=== PATIENT | male | born 1940 | race Caucasian/White ===

== ENCOUNTER 2019-01-21 11:34 | Day surgery (SDC) | payer MEDICARE, OTHER, SELFPAY ==
[2019-01-21 12:14] VITALS: BP 139/75; PULSE 63; RESP 15; TEMP 36.3; O2SAT 99; BMI 25.1
[2019-01-21] MEDS: SODIUM CHLORIDE 0.9% 1,000 ML 200 ML IV (12:27)
--- NOTE | 2019-01-21 12:41 | PM.HP.1 ---
History of Present Illness Date Patient Seen: 01/21/19 Time Patient Seen: 12:41 Chief complaint: [id number] Narrative: 78yo M for surveillance colonoscopy. Has had 3-4 scopes for screening, had polyps at last somewhat over 5 years ago. No symptoms, no family h/o CRC. Patient History Surgical History History of tonsillectomy Status post appendectomy Family History (Updated 04/09/15 @ 00:00 by Conversion Provider) Brother Age: 71 Prostate cancer Social History household members: spouse Family & Social History Family History Brother Age: 71 Prostate cancer Social History: household members spouse Meds Home Medications Medication Instructions Recorded Confirmed Type allopurinol 300 mg PO QDAY #90 tab 07/05/16 01/21/19 Rx doxazosin [Cardura] 8 mg PO QDAY #90 tab 10/30/16 01/21/19 Rx amlodipine [Norvasc] 5 mg PO QDAY #90 tab 06/10/17 01/21/19 Rx atorvastatin [Lipitor] 40 mg PO HS #90 tab 06/10/17 01/21/19 Rx lisinopril-hydrochlorothiazide 10 mg PO QDAY 01/21/19 01/21/19 History Allergies Allergy/AdvReac Type Severity Reaction Status Date / Time lisinopril [LISINOPRIL] AdvReac Intermediate ELEVATED Verified 01/21/19 12:28 POTASSIUM Review of Systems Constitutional Constitutional: Reports as per HPI Exam Vital Signs (past 8 hours): - 01/21/19 12:14 Temperature 97.4 F L Pulse Rate 63 Respiratory Rate 15 Blood Pressure 139/75 Pulse Oximetry 99 Oxygen Delivery Method Room Air Narrative Exam Narrative: AAO, NAD, male of healthy weight EOMI, MMM unlabored RA soft, nt/nd MAEW Assessment & Plan (1) Screening for colon cancer: Current visit: Yes Status: Acute Assessment & Plan narrative: - surveillance colonoscopy --> all R/B/A discussed and pt wishes to proceed
[2019-01-21] MEDS: fentaNYL 250 MCG/5 ML INJ IV (13:24)
[2019-01-21] MEDS: MIDAZOLAM 5 MG/5 ML VIAL IV (13:24)
[2019-01-21 13:59] VITALS: BP 109/68; PULSE 61; RESP 11; TEMP 36.9; O2SAT 98
[2019-01-21 14:04] VITALS: BP 109/69; PULSE 68; RESP 16; O2SAT 97
[2019-01-21 14:13] VITALS: BP 114/72; PULSE 60; RESP 16; TEMP 36.7; O2SAT 99
[2019-01-21 14:40] VITALS: BP 108/63; PULSE 65; RESP 16; TEMP 37; O2SAT 99
--- NOTE | 2019-01-21 14:48 | PM.OP.ENDO ---
Operative Date/Time/Diagnoses Date of procedure: 01/21/19 Time of procedure: 14:03 Pre-op diagnosis: history of polyps Post-op diagnosis: same Procedure & Clinicians Study performed: Surveillance Colonoscopy Same procedure as scheduled: Yes Indications: history of polyps Procedure Notes SCOAP/Timeout: yes Procedure in detail: After obtaining informed consent, the patient was brought to the GI suite and placed in the left lateral decubitus position on the examination table. After placement of appropriate monitors, the patient was given incremental doses of Versed and Fentanyl until an appropriate level of sedation was achieved. A time out was held per SCOAP protocol. A digital rectal examination was performed and did not reveal any masses or other. The colonoscope was gently passed into the patient's anus and the entire colon navigated to the level of the cecum with difficulty due to a long and tortuous colon. Prep was good. Once in the cecum, the scope was slowly withdrawn being sure to go before and beyond all mucosal folds and prominences as able to get a thorough examination. No masses or polyps are noted. Other findings include diverticulosis of the sigmoid colon. At the level of the rectal vault, the scope was retroflexed and the internal anal canal was examined. The scope was straightened and air aspirated from the colon. The instrument was removed from the patient's body and the procedure was concluded. The patient was allowed to awaken from sedation without difficulty and taken to the post-anesthesia care unit in good condition. Scope withdrawal time: 10 min Sedation minutes: 42 Findings: diverticulosis Specimen(s): none sent Complications: none Impression: 1. Diverticulosis of sigmoid colon, moderate 2. Tortuous colon Recommendations: Colonscopy in 5 years and High fiber diet Follow up: as needed Disposition: PACU
== END 2019-01-21 14:48 | disposition home or self-care (01) ==
PROVIDERS: PCP Family Medicine; Visit Provider Surgery
PROC: 0DJD8ZZ Inspection of Lower Intestinal Tract, Via Natural or Artificial Opening Endoscopic (ICD-10-PCS; CPT 45378; principal; 2019-01-21 13:00)
DX: Z86.010 Personal history of colon polyps (principal); K57.30 Diverticulosis of large intestine without perforation or abscess without bleeding
CPT/HCPCS: G0105; 99152; 99153; J2250; J3010

== ENCOUNTER 2021-01-30 08:45 | Day surgery (SDC) | payer MEDICARE, SELFPAY ==
[2021-01-30 10:31] VITALS: BP 138/67; PULSE 65; RESP 16; TEMP 36.8; O2SAT 99; BMI 24.9
[2021-01-30] MEDS: PROPARACAINE 0.5% OPHTH SOL 2 DROPS EYE-OP (10:42)
[2021-01-30] MEDS: CATARACT EYE COMPOUND (10 DROPS/SYRINGE) 3 DROPS EYE-OP (10:47)
--- NOTE | 2021-01-30 11:02 | P.OP_ITS ---
Operative Date/Time/Diagnoses Pre-op diagnosis: Nuclear cataract right eye Procedure & Clinicians Procedure: Cataract Surgery Same procedure as scheduled: Yes Surgeon: Conner Lin Anesthesia Type: MAC +/- and Sedation Operative Notes Procedure in detail: Patient brought to the operating suite. Tetracaine drops placed in the right eye. Marking instrument was used to rafael vertical and horizontal meridians. Patient was prepped and draped in sterile manner. Wire lid speculum was placed in the eye. Marking instrument was used to rafael 40 degree meridian. Betadine drops were placed on the eye. This was irrigated. Lidocaine jelly was placed on the eye. A paracentesis port was created with a side-port blade. 0.1 mL 1% preservative free lidocaine was injected into the anterior chamber. The anterior chamber was deepened with viscoelastic. 2.6 mm keratome was used to create a temporal clear corneal incision. Cystotome and Utrata forceps were used to create continuous tear capsulorrhexis. Balanced salt solution was used to hydro dissect the nucleus. The phacoemulsification handpiece was inserted and the nucleus was removed using the stop and chop technique. The irrigation aspiration handpiece was inserted and the remaining cortex was removed. Anterior chamber was deepened with viscoelastic. An Gonzalez [id number] intraocular lens with a power of 20.5 was injected into the capsular bag. Irrigation aspiration handpiece was inserted and the remaining viscoelastic was removed. The lens was rotated to the 40 degree meridian. Incision was hydrated with balanced salt solution and found to be leak free with pressure with Weck- Milly sponges. 0.1 mL Vigamox injected anterior chamber. 0.3 mL Kenalog 10 mg was injected subconjunctivally. Lid speculum was removed. The patient left the operating room in excellent condition. Complications: none Post-operative Condition: stable Disposition: same day surgery
--- NOTE | 2021-01-30 11:02 | PM.PREOP ---
Pre-operative Note Interval Note History & Physical reviewed/Exam performed by Physician: Yes Changes to H&P: No
[2021-01-30] MEDS: PHENYLEPHRINE/LIDOCAINE VIAL (OR) 0.2 ML EYE-OP (11:23)
[2021-01-30] MEDS: CHONDROIDTIN/SOD HYALURONATE 1.05 ML SYRINGE INTRAOCULA (11:23)
[2021-01-30] MEDS: TRIAMCINOLONE 50 MG/5 ML VIAL INJ (11:23)
[2021-01-30] MEDS: MOXIFLOXACIN INJ 4 MG/0.8 ML VIAL 0.5 MG EYE-OP (11:23)
[2021-01-30] MEDS: LIDOCAINE 2% (GLYDO) 6 ML GEL TOP (11:24)
[2021-01-30] MEDS: BALANCED SALT IRRIG SOLN NO.2 500 ML, EPINEPHrine 1 MG IRR (11:24)
[2021-01-30] MEDS: TETRACAINE 0.5% OPHTH DROPS 4 ML 2 DROPS EYE-OP (11:24)
[2021-01-30 11:35] VITALS: BP 97/61; PULSE 60; RESP 16; TEMP 36.2; O2SAT 100
[2021-01-30 11:58] VITALS: BP 114/67
== END 2021-01-30 11:59 | disposition home or self-care (01) ==
PROVIDERS: PCP Family Medicine; Referring Provider Family Medicine; Visit Provider Ophthalmology
PROC: (CPT 66984; principal; 2021-01-30 11:15)
DX: H25.11 Age-related nuclear cataract, right eye (principal); E78.00 Pure hypercholesterolemia, unspecified; I10 Essential (primary) hypertension
CPT/HCPCS: 66984; J0171; J2250; J3010; J3301; V2787

== ENCOUNTER 2021-02-13 10:07 | Day surgery (SDC) | payer MEDICARE, SELFPAY ==
[2021-02-13] MEDS: PROPARACAINE 0.5% OPHTH SOL 2 DROPS EYE-OP (11:32)
[2021-02-13] MEDS: CATARACT EYE COMPOUND (10 DROPS/SYRINGE) 3 DROPS EYE-OP (11:41)
[2021-02-13 11:44] VITALS: BP 118/69; PULSE 62; RESP 16; TEMP 36.4; O2SAT 99; BMI 24.8
--- NOTE | 2021-02-13 12:57 | P.OP_ITS ---
Operative Date/Time/Diagnoses Pre-op diagnosis: Nuclear Cataract Left eye Post-op diagnosis: same Procedure & Clinicians Same procedure as scheduled: Yes Surgeon: Conner Lin Anesthesia Type: MAC +/- and Sedation Operative Notes Procedure in detail: Patient brought to the operating suite. Tetracaine drops placed in the left eye. Patient was prepped and draped in sterile manner. Wire lid speculum was placed in the eye. Betadine drops were placed on the eye. This was irrigated. Lidocaine jelly was placed on the eye. A paracentesis port was created with a side-port blade. 0.1 mL 1% preservative free lidocaine was injected into the anterior chamber. The anterior chamber was deepened with viscoelastic. 2.6 mm keratome was used to create a temporal clear corneal incision. Cystotome and Utrata forceps were used to create continuous tear capsulorrhexis. Balanced salt solution was used to hydro dissect the nucleus. The phacoemulsification handpiece was inserted and the nucleus was removed using the stop and chop technique. The irrigation aspiration handpiece was inserted and the remaining cortex was removed. Anterior chamber was deepened with viscoe lastic. An Gonzalez DIB00 intraocular lens with a power of 21.0 was injected into the capsular bag. Irrigation aspiration handpiece was inserted and the remaining viscoelastic was removed. Incision was hydrated with balanced salt solution and found to be leak free with pressure with Weck-Milly sponges. 0.1 mL Vigamox injected anterior chamber. 0.3 mL Kenalog 10 mg was injected subconjunctivally. Lid speculum was removed. The patient left the operating room in excellent condition. Complications: none Post-operative Condition: stable Disposition: same day surgery
--- NOTE | 2021-02-13 12:57 | PM.PREOP ---
Pre-operative Note Interval Note History & Physical reviewed/Exam performed by Physician: Yes Changes to H&P: No
[2021-02-13] MEDS: MOXIFLOXACIN INJ 4 MG/0.8 ML VIAL 0.5 MG EYE-OP (13:15)
[2021-02-13] MEDS: PHENYLEPHRINE/LIDOCAINE VIAL (OR) 0.2 ML EYE-OP (13:15)
[2021-02-13] MEDS: TRIAMCINOLONE 50 MG/5 ML VIAL INJ (13:16)
[2021-02-13] MEDS: CHONDROIDTIN/SOD HYALURONATE 1.05 ML SYRINGE INTRAOCULA (13:16)
[2021-02-13] MEDS: LIDOCAINE 2% (GLYDO) 6 ML GEL TOP (13:16)
[2021-02-13] MEDS: BALANCED SALT IRRIG SOLN NO.2 500 ML, EPINEPHrine 1 MG IRR (13:16)
[2021-02-13] MEDS: TETRACAINE 0.5% OPHTH DROPS 4 ML 2 DROPS EYE-OP (13:16)
[2021-02-13 13:26] VITALS: BP 90/53; PULSE 60; RESP 16; TEMP 36.4; O2SAT 99
[2021-02-13 13:36] VITALS: BP 102/59; PULSE 54
== END 2021-02-13 13:41 | disposition home or self-care (01) ==
PROVIDERS: PCP Family Medicine; Referring Provider Ophthalmology; Visit Provider Ophthalmology
PROC: (CPT 66984; principal; 2021-02-13 13:15)
DX: H25.12 Age-related nuclear cataract, left eye (principal); I10 Essential (primary) hypertension; E78.00 Pure hypercholesterolemia, unspecified
CPT/HCPCS: 66984; J0171; J2250; J3010; J3301

== ENCOUNTER 2022-06-02 00:57 | Emergency (ER) | payer MEDICARE, SELFPAY ==
--- NOTE | 2022-06-02 00:59 | ED_ITS ---
HPI - GI Bleed General Chief complaint: GI Bleed Stated complaint: blood in stool Time Seen by Provider: 06/02/22 00:58 History of Present Illness HPI Narrative: 81-year-old male nonsmoker with history of hypertension and hyperlipidemia presents at the request of paramedics on [place] for evaluation of a few episodes of dark stools. He had been in his normal state of health and then or Friday went upstairs soon after eating dinner and had a bowel movement, which is reported to be abnormal for him and states that it was dark in appearance. He is had a few other episodes with dark stools. He denies any use of blood thinners or history of significant alcohol abuse. He denies any history of bleeding ulcers, significant NSAID use or recent use of Pepto. He is absent of any pain. He is not dizzy nor weak or lightheaded. He denies any shortness of breath or unexplained fatigue. He has never had an abnormal colonoscopy Related Data Home Medications Medication Instructions Recorded Confirmed lisinopril 10 10 mg PO QDAY 01/21/19 02/13/21 mg-hydrochlorothiazide 12.5 mg tablet Previous Rx's Medication Instructions Recorded allopurinol 300 mg tablet 300 mg PO QDAY #90 tabs 07/05/16 doxazosin 8 mg tablet (Cardura) 8 mg PO QDAY #90 tabs 10/30/16 amlodipine 5 mg tablet (Norvasc) 5 mg PO QDAY #90 tabs 06/10/17 atorvastatin 40 mg tablet (Lipitor) 40 mg PO HS #90 tabs 06/10/17 Allergies Allergy/AdvReac Type Severity Reaction Status Date / Time lisinopril [LISINOPRIL] AdvReac Intermediate ELEVATED Verified 01/21/19 12:28 POTASSIUM Review of Systems Review of Systems Narrative: GENERAL: Denies chills, fatigue, malaise, fever, sweats. HEENT: Denies sinus pain, ear pain, sore throat, difficulty swallowing, dizziness. RESPIRATORY: Denies dyspnea, cough, wheezing, hemoptysis, sputum. CARDIOVASCULAR: Denies chest pain, palpitations, orthopnea, edema, GASTROINTESTINAL: See HPI : Denies dysuria, frequency, incontinence, hematuria, urinary retention. MUSCULOSKELETAL: denies weakness, joint pain, or bony pain SKIN: Denies rash, skin lesions, or other NEUROLOGIC: Denies weakness, headache, numbness, change in speech, confusion, seizures, incoordination. PSYCHIATRIC: No concerning psychosocial issues. 12 point review of systems is negative except for those stated above Patient History Surgical History History of tonsillectomy Status post appendectomy Family History Brother Age: 75 Prostate cancer Social History household members: spouse Smoking Status: Never smoker alcohol intake: current Smoking Status: Never smoker alcohol intake frequency: 0-2 drinks per day Substance Use Type: does not use Exam Narrative Exam Narrative: GENERAL: [81] year old patient appears stated age. Well-developed patient, in mild distress. HEAD: Atraumatic. Normocephalic. EYES: Pupils equal round and reactive. Extraocular motions intact. No scleral icterus. No injection or drainage. ENT: Nose without bleeding, purulent drainage. Throat without erythema, tonsillar hypertrophy or exudate. Airway patent. NECK: Trachea midline. Non tender CARDIOVASCULAR: Regular rate and rhythm without murmurs, gallops, or rubs. RESPIRATORY: Clear to auscultation. Breath sounds equal bilaterally. No wheezes, rales, or rhonchi. GASTROINTESTINAL: Abdomen soft, non-tender, nondistended. RECTAL: Heme-negative EXTREMITIES: No edema or joint tenderness. BACK: Nontender without deformity or crepitance. No flank tenderness. NEURO: AOx3. SKIN: No rash or erythema of visible areas Initial Vital Signs Initial Vital Signs: Vital Signs Temperature 98.2 F 06/02/22 01:33 Pulse Rate 76 06/02/22 01:33 Respiratory Rate 18 06/02/22 01:33 Blood Pressure 162/74 H 06/02/22 01:33 Pulse Oximetry 99 06/02/22 01:33 Oxygen Delivery Method 06/02/22 01:33 Course Orders Ordered: ED Orders 06/02/22 01:11 Complete Blood Count AUTO DIFF Stat Comprehensive Metabolic Panel Stat Prothrombin Time INR Stat Vital Signs Vital signs: Vital Signs - 8 hr 06/02/22 01:33 Temperature 98.2 F Pulse Rate 76 Respiratory Rate 18 Blood Pressure 162/74 H Pulse Oximetry 99 Oxygen Delivery Method Room Air MDM - GI Bleed Lab Data Result diagrams: 06/02/22 01:11 06/02/22 01:11 Labs: Lab Results 06/02/22 06/02/22 06/02/22 Range/Units 01:11 01:11 01:11 WBC 3.8 L (4.5-11.0) X10^3/uL RBC 4.27 L (4.5-5.9) X10^6/uL Hgb 13.9 (13.5-17.5) g/dL Hct 40.5 L (41-53) % MCV 94.7 (80-100) fL MCH 32.7 (26-34) PG MCHC 34.5 (30-36) % RDW 14.6 (11.6-14.8) % Plt Count 136 L (150-400) X10^3/uL Neut % (Auto) 68.4 (50-75) % Lymph % (Auto) 18.5 L (25-40) % [place] % (Auto) 10.0 (3-14) % Eos % (Auto) 2.5 (2-4) % Baso % (Auto) 0.6 (0-2) % Neut # (Auto) 2600 (9496-2402) /uL Lymph # (Auto) 700 L (8057-4436) /uL [place] # (Auto) 400 (0-900) /uL Eos # (Auto) 100 (0-450) /uL Baso # (Auto) 0 (0-100) /uL PT 12.4 (10.1-12.7) SECONDS INR 1.1 (0.9-1.3) Sodium 136 L (137-145) mmol/L Potassium 4.1 (3.4-5.1) mmol/L Chloride 108 H (98-107) mmol/L Carbon Dioxide 23 (22-32) mmol/L BUN 24 H (9-20) mg/dL Creatinine 1.00 (0.66-1.25) mg/dL Estimated GFR > 60 (>60) mL/min BUN/Creatinine Ratio 24.0 H (6-22) Glucose 105 (80-110) mg/dL Calcium 8.9 (8.4-10.2) mg/dL Total Bilirubin 0.4 (0.2-1.3) mg/dL AST 32 (17-59) IU/L ALT 22 (<50) IU/L Alkaline Phosphatase 73 (38-126) U/L Total Protein 6.9 (6.3-8.2) g/dL Albumin 3.9 (3.5-5.0) g/dL Globulin 3.0 (1.7-4.1) g/dL Albumin/Globulin Ratio 1.3 (1.0-2.8) MDM Narrative Medical decision making narrative: Patient reports a few episodes of dark stool, is not anticoagulated, has stable vital signs and normal H&H. Rectal exam is heme-negative. There is no indication of current or recent severe bleeding. Patient given extensive return precautions and questions answered to his apparent satisfaction Discharge Plan Departure Patient Disposition: Home Clinical Impression: GI bleed Instructions: Gastrointestinal Bleeding Activity Restrictions/Additional Instructions: *You have been diagnosed with [dark stool, possibly GI bleed. As we discussed thankfully your physical exam demonstrates no evidence of bleeding today and your blood work is very reassuring] *What to do: *Please continue to take your regular medications as directed. [x ] New medication prescriptions sent to your pharmacy: [ ] [ ] New medication written as a paper prescription [ ] No new medications given *Please follow up with your primary care provider in 2-3 days, call for an appointment. Let them know you were seen in the Emergency Department and that we ask that you be seen in follow up. We will electronically transmit a record of today's note if your PCP is in our system * also, as we discussed it would be reasonable to touch base with Dr. Alvarado at [facility] has an upper and possibly lower endoscopy would be appropriate in the aftermath of suspected GI bleeding *Return to Emergency Department if you should have any new, worsening or concerning symptoms, such as [fever greater than 101 F, shaking chills, wor sening pain, persistent vomiting or other bothersome symptoms] Prescriptions: No Action allopurinol 300 MG tablet 300 mg PO QDAY Qty: 90 3RF doxazosin [Cardura] 8 MG tablet 8 mg PO QDAY Qty: 90 1RF amlodipine [Norvasc] 5 MG tablet 5 mg PO QDAY Qty: 90 1RF atorvastatin [Lipitor] 40 MG tablet 40 mg PO HS Qty: 90 1RF lisinopril-hydrochlorothiazide 10 MG/12.5 MG tablet 10 mg PO QDAY Referrals: Rachid Alvarado MD [Physician] - Heydi Carson MD [Primary Care Provider] -
[2022-06-02 01:23] LABS: Add Manual Diff / Slide Review NO; Basophils Absolute Auto 0 /uL (0-100); Basophils Percent Auto 0.6 % (0-2); Eosinophils Absolute Auto 100 /uL (0-450); Eosinophils Percent Auto 2.5 % (2-4); Hematocrit 40.5 % (41-53); Hemoglobin 13.9 g/dL (13.5-17.5); Lymphocytes Absolute Auto 700 /uL (1100-4500); Lymphocytes Percent Auto 18.5 % (25-40); Mean Corpuscular HGB Conc 34.5 % (30-36); Mean Corpuscular Hemoglobin 32.7 PG (26-34); Mean Corpuscular Volume 94.7 fL (80-100); Monocytes Absolute Auto 400 /uL (0-900); Neutrophils Absolute Auto 2600 /uL (1500-7000); Neutrophils Percent Auto 68.4 % (50-75); Platelet Count 136 X10^3/uL (150-400); Red Blood Cell Count 4.27 X10^6/uL (4.5-5.9); Red Cell Distribution Width 14.6 % (11.6-14.8); White Blood Cell Count 3.8 X10^3/uL (4.5-11.0)
[2022-06-02 01:28] LABS: INR 1.1 (0.9-1.3); Prothrombin Time 12.4 SECONDS (10.1-12.7)
[2022-06-02 01:33] VITALS: BP 162/74; PULSE 76; RESP 18; TEMP 36.8; O2SAT 99; BMI 22.8
[2022-06-02 01:33] LABS: Alanine Aminotransferase 22 IU/L (<50); Albumin 3.9 g/dL (3.5-5.0); Albumin Globulin Ratio 1.3 (1.0-2.8); Alkaline Phosphatase 73 U/L (38-126); Aspartate Aminotransferase 32 IU/L (17-59); Bilirubin Total 0.4 mg/dL (0.2-1.3); Blood Urea Nitrogen 24 mg/dL (9-20); Calcium 8.9 mg/dL (8.4-10.2); Carbon Dioxide 23 mmol/L (22-32); Chloride 108 mmol/L (98-107); Estimated Glomerular Filt Rate > 60 mL/min (>60); Glucose 105 mg/dL (80-110); HEMOLYSIS < 15 (0-50); Potassium 4.1 mmol/L (3.4-5.1); Sodium 136 mmol/L (137-145); Total Protein 6.9 g/dL (6.3-8.2)
[2022-06-02 02:30] VITALS: PULSE 78; RESP 19; O2SAT 99
== END 2022-06-02 04:46 | disposition home or self-care (01) ==
PROVIDERS: Emergency Provider Emergency Medicine; PCP Family Medicine
DX: K92.2 Gastrointestinal hemorrhage, unspecified (principal)
CPT/HCPCS: 36415; 80053; 85025; 85610; 99283

== ENCOUNTER 2023-08-10 16:03 | Emergency (ER) | payer MEDICARE, SELFPAY ==
[2023-08-10 16:09] VITALS: BP 133/63; PULSE 65; RESP 18; TEMP 36.7; O2SAT 98; BMI 23.7
--- NOTE | 2023-08-10 16:14 | ED.EAR ---
HPI - Ear Problem <Raleigh Reed PA-C - Last Filed: 08/10/23 17:19> General Chief complaint: Ear Stated complaint: Ear infection Time Seen by Provider: 08/10/23 16:14 Source: patient Mode of arrival: Ambulatory History of Present Illness HPI Narrative: This is a 82-year-old male presenting to the emergency department complaining of decreased hearing in bilateral ears. He states that this is somewhat chronic issue for him has a appointment with audiology. He states that he was told to remove the ear your wax in his ears and purchase an [id number] product that would theoretically wash out his ears but states that he used it and now has decreased hearing bilaterally. Denies any significant ear pain or discharge. Related Data Home Medications Medication Instructions Recorded Confirmed lisinopril 10 10 mg PO QDAY 01/21/19 02/13/21 mg-hydrochlorothiazide 12.5 mg tablet Previous Rx's Medication Instructions Recorded allopurinol 300 mg tablet 300 mg PO QDAY #90 tabs 07/05/16 doxazosin 8 mg tablet (Cardura) 8 mg PO QDAY #90 tabs 10/30/16 amlodipine 5 mg tablet (Norvasc) 5 mg PO QDAY #90 tabs 06/10/17 atorvastatin 40 mg tablet (Lipitor) 40 mg PO HS #90 tabs 06/10/17 carbamide peroxide 6.5 % ear drops 2 drp EAR-BOTH BID #15 mL 08/10/23 (Debrox) Allergies Allergy/AdvReac Type Severity Reaction Status Date / Time lisinopril [LISINOPRIL] AdvReac Intermediate ELEVATED Verified 08/10/23 16:13 POTASSIUM Review of Systems <Raleigh Reed PA-C - Last Filed: 08/10/23 17:19> Review of Systems Narrative: GENERAL: Denies chills, fatigue, malaise, fever, sweats. HEENT: Decreased hearing bilaterally, Denies sinus pain, ear pain, sore throat, difficulty swallowing, dizziness. RESPIRATORY: Denies dyspnea, cough, wheezing, hemoptysis, sputum. CARDIOVASCULAR: Denies chest pain, palpitations, orthopnea, edema, GASTROINTESTINAL: Denies nausea, vomiting, abdominal pain, diarrhea, constipation, melena. : Denies dysuria, frequency, incontinence, hematuria, urinary retention. MUSCULOSKELETAL: denies weakness, joint pain, or bony pain SKIN: Denies rash, skin lesions, or other NEUROLOGIC: Denies weakness, headache, numbness, change in speech, confusion, seizures, incoordination. PSYCHIATRIC: No concerning psychosocial issues. 12 point review of systems is negative except for those stated above Patient History <Raleigh Reed PA-C - Last Filed: 08/10/23 17:19> Surgical History History of tonsillectomy Status post appendectomy Family History Brother Age: 76 Prostate cancer Social History household members: spouse Smoking Status: Never smoker alcohol intake: current Smoking Status: Never smoker alcohol intake frequency: 0-2 drinks per day Substance Use Type: does not use Exam <Raleigh Reed PA-C - Last Filed: 08/10/23 17:19> Narrative Exam Narrative: GENERAL: Well-developed patient, in mild distress. HEAD: Atraumatic. Normocephalic. EYES: Pupils equal round and reactive. Extraocular motions intact. No scleral icterus. No injection or drainage. ENT: Bilateral cerumen impactions Nose without bleeding, purulent drainage. Throat without erythema, tonsillar hypertrophy or exudate. Airway patent. NECK: Trachea midline. Non tender CARDIOVASCULAR: Regular rate and rhythm without murmurs, gallops, or rubs. RESPIRATORY: Clear to auscultation. Breath sounds equal bilaterally. No wheezes, rales, or rhonchi. GASTROINTESTINAL: Abdomen soft, non-tender, nondistended. EXTREMITIES: No edema or joint tenderness. BACK: Nontender without deformity or crepitance. No flank tenderness. NEURO: AOx3. SKIN: No rash or erythema of visible areas Initial Vital Signs Initial Vital Signs: Vital Signs Temperature 98.0 F 08/10/23 16:09 Pulse Rate 65 08/10/23 16:09 Respiratory Rate 18 08/10/23 16:09 Blood Pressure 133/63 08/10/23 16:09 Pulse Oximetry 98 08/10/23 16:09 Oxygen Delivery Method Room Air 08/10/23 16:09 <Cinthya Barry DO - Last Filed: 08/11/23 08:05> Initial Vital Signs Initial Vital Signs: Vital Signs Temperature 98.0 F 08/10/23 16:09 Pulse Rate 65 08/10/23 16:09 Respiratory Rate 18 08/10/23 16:09 Blood Pressure 133/63 08/10/23 16:09 Pulse Oximetry 98 08/10/23 16:09 Oxygen Delivery Method Room Air 08/10/23 16:09 Course <Raleigh Reed PA-C - Last Filed: 08/10/23 17:19> Orders Ordered: Discontinued Medications Docusate Sodium (Docusate 100 Mg Capsule) 100 mg PO NOW ONE Stop: 08/10/23 16:21 Last Admin: 08/10/23 16:39 Dose: 100 mg Documented By: RB Docusate Sodium (Docusate 100 Mg Capsule) 100 mg PO NOW ONE Stop: 08/10/23 16:21 Last Admin: 08/10/23 16:40 Dose: 100 mg Documented By: RB Vital Signs Vital signs: Vital Signs - 8 hr 08/10/23 16:09 Temperature 98.0 F Pulse Rate 65 Respiratory Rate 18 Blood Pressure 133/63 Pulse Oximetry 98 Oxygen Delivery Method Room Air <Cinthya Barry DO - Last Filed: 08/11/23 08:05> Orders Ordered: Discontinued Medications Docusate Sodium (Docusate 100 Mg Capsule) 100 mg PO NOW ONE Stop: 08/10/23 16:21 Last Admin: 08/10/23 16:39 Dose: 100 mg Documented By: RB Docusate Sodium (Docusate 100 Mg Capsule) 100 mg PO NOW ONE Stop: 08/10/23 16:21 Last Admin: 08/10/23 16:40 Dose: 100 mg Documented By: RB Vital Signs Vital signs: Vital Signs - 8 hr 08/10/23 16:09 Temperature 98.0 F Pulse Rate 65 Respiratory Rate 18 Blood Pressure 133/63 Pulse Oximetry 98 Oxygen Delivery Method Room Air Medical Decision Making <Raleigh Reed PA-C - Last Filed: 08/10/23 17:19> MDM Narrative Medical decision making narrative: MDM * differential diagnosis includes but not limited to cerumen impaction, perforated TM, otitis media, otitis externa * Prior records reviewed: Patient was last seen here a year ago due to a GI bleed. History of hypertension hyperlipidemia. Patient was recommended follow up with GI outpatient for possible upper and lower endoscopy. * My lab interpretation: None obtained * My imgaing interpretation: None obtained * Clinical Decision Rules/Scores evaluated: None * Independent discussions with: None ED Course: This is a 82-year-old male presents emergency department due to decreased hearing suspect to be due to bilateral cerumen impactions noted on physical exam. Ear lavage was performed which had a small amount of improvement. Ear curette was used to remove more cerumen. Unable to completely remove the cerumen secondary to patient compliance but he did report a significant increase in his ability to hear. We will prescribed Debrox drops and advised to do ear lavage at home. He will follow up with his tax clerk as planned. No evidence of any purulent drainage concerning for otitis externa and no ear pain concerning for otitis media. Shared Decision Making: Discussed plan with the patient who is comfortable with the plan. Social Considerations: None Disposition: Discharged home Discharge Plan Departure Patient Disposition: Home Clinical Impression: Cerumen impaction Instructions: Cerumen Impaction Activity Restrictions/Additional Instructions: Thank you for coming to the [facility] Emergency Department today. I am glad that we are able to remove some of the ear wax and help with your hearing. Please use the Debrox drops as recommended and this should help break up the ear wax in her ears and then you may use the home lavage system you have set up. Sent your medication to the [facility]. I hope you feel better soon. Please follow up with your primary care provider within a week if your symptoms continue. If you do not have a primary care provider please contact the [facility] Resource line at [phone]. They will ask some questions about your medical history and help you get set up with a provider in the community. Prescriptions: New Debrox 6.5 % drops 2 drp EAR-BOTH BID Qty: 15 0RF No Action allopurinol 300 MG tablet 300 mg PO QDAY Qty: 90 3RF doxazosin [Cardura] 8 MG tablet 8 mg PO QDAY Qty: 90 1RF amlodipine [Norvasc] 5 MG tablet 5 mg PO QDAY Qty: 90 1RF atorvastatin [Lipitor] 40 MG tablet 40 mg PO HS Qty: 90 1RF lisinopril-hydrochlorothiazide 10 MG/12.5 MG tablet 10 mg PO QDAY Referrals: Heydi Carson MD [Primary Care Provider] - Stand Alone Forms: Patient Portal/API ED Sign-out <Cinthya Barry DO - Last Filed: 08/11/23 08:05> Cosign ED Attending Matilde Attestation: I was immediately available in the department for consultation.
[2023-08-10] MEDS: DOCUSATE 100 MG CAPSULE PO ×2 (16:39→16:40)
== END 2023-08-10 17:30 | disposition home or self-care (01) ==
PROVIDERS: Emergency Provider Physician Assistant Medical; PCP Family Medicine
DX: H61.23 Impacted cerumen, bilateral (principal)
CPT/HCPCS: 69210; 99282

== ENCOUNTER 2024-06-01 13:45 | Outpatient (RCR) | payer MEDICARE, SELFPAY ==
--- NOTE | 2024-03-23 14:01 | ST.OPIE ---
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 Gilliland Reason for Referral Alzheimer's disease with late onset Setting Assessment Location Outpatient Care Visit Type Note Type Initial evaluation Next Note Type Next Note Type Treatment Note Patient Information Identification Type Name Patient History Pt is an 83 year old male seen this date for cognitive- communication evaluation d/t dx ofo Alzheimer's dementia. He is accompanied by his . They report observed cognitive changes several years ago. Pt reports he frequently will forget current events and daily things such as forgetting where he placed items. reports she manages his medications in a pillbox and ensures he takes them. She also is responsible for the finances. Pt reports goals for therapy would be: word finding and recalling names. Pt denies any significant past medical history. Hearing Hearing Level Normal Vision Vision Status Not Impaired Previous Therapy Previous Speech-Language Therapy No Subjective Patient Report Pt arrived on time with his who assisted him with answering questions secondary to cognitive deficits. Mental Status Alert,Responsive,Cooperative Assessment Oral Motor Examination Completed No Informal Assessment Receptive Language Normal No Receptive Language Impairment(s) Following 2-step commands, Following 3-step commands Expressive Language Normal No Expressive Language Impairment(s) Divergent naming,Expression of complex thoughts/ideas Pragmatic Language Normal Yes Speech Normal Yes Cognition Normal No Cognitive Impairment(s) Short-term memory,Long-term memory,Executive functioning, Problem solving,Thought organization Formal Assessment Standardized Test/Screener Type Cognitive Linguistic Quick Test (CLQT) Administration Complete Results ST administered the CLQT with Pt scoring a total composite score of 1/6 indicating a severity rating of moderate. He scored the following on each section: Attention 76- moderate Memory 41- severe Executive functions 7- severe Language 18- moderate Visuospatial skills 24- moderate clock drawing 8- moderate Pt demonstrated most deficits in memory recall and executive functions. He demonstrated difficulties recalling task instructions throughout the test and benefited from repetition of instructions. He exhibited difficulties comprehending some tasks, such as mazes and design generation. Informally, he exhibited difficulties recalling his past occupations . Findings/Results Language Function Moderately impaired Cognitive Function Moderately impaired Findings Pt presents with moderate cognitive-communication deficit characterized by difficulties with short term memory, executive functions and divergent naming. Cognitive Communication Deficits Self-awareness of Cognitive- Limited awareness (minimal Communication Deficits appreciation without specificity) Prognosis Prognosis Fair Based on Cognitive status Plan of Care Speech-Language Treatment Yes Frequency 1x/week Patient/Caregiver Education Described results of evaluation,Patient expressed understanding of evaluation, Patient expressed agreement with goals and treatment plans ,Family/caregivers expressed understanding of evaluation, Patient requires further education/training,Family/ caregivers require further education/training Short Term Goals STG 1: Patient will be appropriately oriented to ( person, place, time, and situation) with moderate verbal cues for external memory aid to improve safety and awareness in functional living environment. STG 2: Patient will sequence 3 -4 functional steps with 80% accuracy with mild verbal and visual cues in order to promote independence and safety with ADLs. STG 3: Patient will demonstrate increase short term recall for functional/ daily life information with 90 % of opportunities given environmental modifications implemented and by using visual aids in order to increase safety during ADLs. Road Patcher Goals LTG 1: Patient will increase memory skills using compensatory strategies as trained, using visual/auditory aids as needed in order increase safety during ADLs and promote independence. LTG 2: Patient will increase functional problem solving skills with occasional Verbal Cues and occasional Visual cues in order to increase safety during ADLs, increase safety during daily living tasks, and promote independence.
--- NOTE | 2024-03-23 14:01 | ST.OPPOC ---
Physical, Occupational & Speech Therapy At [facility] Visit Care Team Role Provider Type Heydi Carson MD Family Provider Non-Staff Primary Care Provider Address: [place], [address] Fredy Gilliland MD Attending Provider Non-Staff Referring Provider Address: [address] [place], [address] Speech Pathology Plan of Care Plan of Care Dates 03/23/24-06/23/[address] Gilliland Patient History Pt is an 83 year old male seen this date for cognitive-communication evaluation d/t dx ofo Alzheimer's dementia. He is accompanied by his . They report observed cognitive changes several years ago. Pt reports he frequently will forget current events and daily things such as forgetting where he placed items. reports she manages his medications in a pillbox and ensures he takes them. She also is responsible for the finances. Pt reports goals for therapy would be: word finding and recalling names. Pt denies any significant past medical history. Self-awareness of Cognitive- Limited awareness (minima Communication Deficits Short Term Goals STG 1: Patient will be appropriately oriented to (person, place, time, and situation) with moderate verbal cues for external memory aid to improve safety and awareness in functional living environment. STG 2: Patient will sequence 3-4 functional steps with 80% accuracy with mild verbal and visual cues in order to promote independence and safety with ADLs. STG 3: Patient will demonstrate increase short term recall for functional/daily life information with 90% of opportunities given environmental modifications implemented and by using visual aids in order to increase safety during ADLs. High Pressure Operator Goals LTG 1: Patient will increase memory skills using compensatory strategies as trained, using visual/auditory aids as needed in order increase safety during ADLs and promote independence. LTG 2: Patient will increase functional problem solving skills with occasional Verbal Cues and occasional Visual cues in order to increase safety during ADLs, increase safety during daily living tasks, and promote independence. Comment: Electronically Signed by: DANE Cerna 03/23/24 1401 If you are in agreement with this Plan of Care, please return a signed and dated copy. I have reviewed this Plan of Care and certify that the skilled therapy services above are required to meet the patient?s needs. Physician Signature Date Printed Name and Credentials Clinical Instructor Signature Printed Name and Credentials
--- NOTE | 2024-06-01 14:24 | ST.OPTN ---
Visit Care Team Role Provider Type Heydi Carson MD Family Provider Non-Staff Primary Care Provider Address: [place], [address] Fredy Gilliland MD Attending Provider Non-Staff Referring Provider Address: [place], [address] CAMP COORDINATOR Treatment Note CAMP COORDINATOR Treatment Note Start: 06/01/24 14:20 Freq: Status: Active Protocol: Document 06/01/24 14:21 MA (Rec: 06/01/24 14:24 MA [id number]) Speech Pathology Treatment Note Session Time Visit Start Time 13:45 Visit Stop Time 14:15 Total Visit Minutes 30 Visit Information Visit Number 2 Plan of Care Dates 03/23/24-06/23/24 Setting Treatment Setting Outpatient Care Next Note Type Next Note Type Treatment Note General Information Patient History Pt is an 83 year old male seen this date for cognitive- communication evaluation d/t dx ofo Alzheimer's dementia. He is accompanied by his . They report observed cognitive changes several years ago. Pt reports he frequently will forget current events and daily things such as forgetting where he placed items. reports she manages his medications in a pillbox and ensures he takes them. She also is responsible for the finances. Pt reports goals for therapy would be: word finding and recalling names. Pt denies any significant past medical history. Subjective Observations/Patient Presentation Pt arrived on time with his who accompanied him to therapy. Objective Short Term Goals STG 1: Patient will be appropriately oriented to ( person, place, time, and situation) with moderate verbal cues for external memory aid to improve safety and awareness in functional living environment. STG 2: Patient will sequence 3 -4 functional steps with 80% accuracy with mild verbal and visual cues in order to promote independence and safety with ADLs. STG 3: Patient will demonstrate increase short term recall for functional/ daily life information with 90 % of opportunities given environmental modifications implemented and by using visual aids in order to increase safety during ADLs. Senior Living Goals LTG 1: Patient will increase memory skills using compensatory strategies as trained, using visual/auditory aids as needed in order increase safety during ADLs and promote independence. LTG 2: Patient will increase functional problem solving skills with occasional Verbal Cues and occasional Visual cues in order to increase safety during ADLs, increase safety during daily living tasks, and promote independence. Treatment Activities Internal and external memory strategies Assessment Assessment of Improvement ST reviewed CLQT administered during last session. ST assessed memory recall of temporal orientation information. Pt exhibited difficulties recall the year and month, however able to recall the month with cues. ST provided educational handouts on internal and external memory strategies and straetgies to recall names. ST reviewed handouts. Pt reports he writes things down to assist with memory. Pt and Pt report no changes since last visit. ST educated Pt and Pt on plan to create a memory book to assist with memory recall. Pt and Pt report they would like to do this. ST recommended Pt bring in photos for next session for memory book. ST to assist Pt and Pt on creating memory book and training them on how to utilize it functionally.
--- NOTE | 2024-08-06 14:10 | ST.OPDS ---
Visit Care Team Role Provider Type Heydi Carson MD Family Provider Non-Staff Primary Care Provider Address: [place], [address] Fredy Gilliland MD Attending Provider Non-Staff Referring Provider Address: [place], [address] RAW MATERIAL HANDLER Treatment Note RAW MATERIAL HANDLER Treatment Note Start: 06/01/24 14:20 Freq: Status: Active Protocol: Document 06/01/24 14:21 MA (Rec: 06/01/24 14:24 MA [id number]) Speech Pathology Treatment Note Session Time Visit Start Time 13:45 Visit Stop Time 14:15 Total Visit Minutes 30 Visit Information Visit Number 2 Plan of Care Dates 03/23/24-06/23/24 Setting Treatment Setting Outpatient Care Next Note Type Next Note Type Treatment Note General Information Patient History Pt is an 83 year old male seen this date for cognitive- communication evaluation d/t dx ofo Alzheimer's dementia. He is accompanied by his . They report observed cognitive changes several years ago. Pt reports he frequently will forget current events and daily things such as forgetting where he placed items. reports she manages his medications in a pillbox and ensures he takes them. She also is responsible for the finances. Pt reports goals for therapy would be: word finding and recalling names. Pt denies any significant past medical history. Subjective Observations/Patient Presentation Pt arrived on time with his who accompanied him to therapy. Objective Short Term Goals STG 1: Patient will be appropriately oriented to ( person, place, time, and situation) with moderate verbal cues for external memory aid to improve safety and awareness in functional living environment.- NOT MET STG 2: Patient will sequence 3 -4 functional steps with 80% accuracy with mild verbal and visual cues in order to promote independence and safety with ADLs.- NOT MET STG 3: Patient will demonstrate increase short term recall for functional/ daily life information with 90 % of opportunities given environmental modifications implemented and by using visual aids in order to increase safety during ADLs.- NOT MET Disability Attorney Goals LTG 1: Patient will increase memory skills using compensatory strategies as trained, using visual/auditory aids as needed in order increase safety during ADLs and promote independence.- NOT MET LTG 2: Patient will increase functional problem solving skills with occasional Verbal Cues and occasional Visual cues in order to increase safety during ADLs, increase safety during daily living tasks, and promote independence.- NOT MET Treatment Activities Internal and external memory strategies Assessment Assessment of Improvement ST reviewed CLQT administered during last session. ST assessed memory recall of temporal orientation information. Pt exhibited difficulties recall the year and month, however able to recall the month with cues. ST provided educational handouts on internal and external memory strategies and straetgies to recall names. ST reviewed handouts. Pt reports he writes things down to assist with memory. Pt and Pt report no changes since last visit. ST educated Pt and Pt on plan to create a memory book to assist with memory recall. Pt and Pt report they would like to do this. ST recommended Pt bring in photos for next session for memory book. ST to assist Pt and Pt on creating memory book and training them on how to utilize it functionally. Pt called requesting all appointments be cancelled. Pt to be discharged from at this time.
== END 2024-08-17 14:57 | disposition home or self-care (01) ==
LOC: SP 13:45
PROVIDERS: Family Provider Family Medicine; PCP Family Medicine; Referring Provider Psychiatry & Neurology Neurology; Visit Provider Psychiatry & Neurology Neurology
DX: G30.1 Alzheimer's disease with late onset (principal)
CPT/HCPCS: 92507; 92523

== ENCOUNTER → 2025-01-10 11:31 | Outpatient (CLI) | payer MEDICARE, SELFPAY ==
--- NOTE | 2025-01-10 11:32 | DI.US.S_ITS ---
PROCEDURE: US HERNIA INDICATIONS: R/O HERNIA TECHNIQUE: Real-time focused scanning was performed of the abdomen, with image documentation. COMPARISON: None. FINDINGS: 2.6 x 1.3 x 2.0 fat containing right inguinal hernia in the mid and proximal right inguinal canal. Small amount of bowel involvement proximally. No change with Valsalva. Hernia sac is noncompressible. Fascial defect measures 1.1 cm in diameter IMPRESSION: Positive right inguinal hernia with minimal bowel involvement. Advise follow-up CT evaluation Approved by: Nilesh Arredondo M.D. on 01/10/2025 at 18:21
== END ==
PROVIDERS: Family Provider Family Medicine; PCP Family Medicine; Referring Provider Physician Assistant; Visit Provider Physician Assistant
DX: K40.30 Unilateral inguinal hernia, with obstruction, without gangrene, not specified as recurrent (principal)
CPT/HCPCS: 76705; 99213